=== PATIENT | female | born 1980 | race Caucasian/White ===

== ENCOUNTER 2021-05-24 12:33 | Emergency (ER) | payer SELFPAY ==
[~2021-05-24] VITALS: Ht 160 cm; Wt 57.4 kg
[2021-05-24 14:18] LABS: HEMATOCRIT 44.7 % (37.0-47.0); HEMOGLOBIN 15.1 g/dL (12.5-16.0); MEAN PLATELET VOLUME 10.4 fl (7.4-10.4); RED BLOOD COUNT 5.13 M/mm3 (4.10-5.30); RED CELL DISTRIBUTION WIDTH 12.5 % (11.5-14.5); WHITE BLOOD COUNT 4.8 K/mm3 (4.8-10.8)
[2021-05-24 14:24] LABS: ALBUMIN 4.1 g/dL (3.5-5.0); POTASSIUM 4.1 mmol/L (3.5-5.1)
[2021-05-24 14:25] LABS: CALCIUM 9.2 mg/dL (8.3-10.5)
[2021-05-24 14:27] LABS: TOTAL PROTEIN 7.8 g/dL (6.4-8.3)
[2021-05-24 14:28] LABS: TOTAL BILIRUBIN 0.3 mg/dL (0.2-1.2)
[2021-05-24] MEDS ORDERED: LORAZEPAM1 M1 PO (14:30)
[2021-05-24 15:25] VITALS: BP 124/69
== END 2021-05-24 15:22 | disposition home or self-care (01) ==
LOC: ED 12:33
PROVIDERS: Family Medicine
DX: F10.10 Alcohol abuse, uncomplicated (principal); F41.9 Anxiety disorder, unspecified; F17.210 Nicotine dependence, cigarettes, uncomplicated

== ENCOUNTER 2021-05-31 18:59 | Emergency (ER) | payer SELFPAY ==
[~2021-05-31 18:59] MED LIST: LORAZEPAM1 M1 PO
[2021-05-31 21:02] VITALS: BP 142/78
== END 2021-05-31 21:07 | disposition home or self-care (01) ==
LOC: ED 18:59
DX: F10.10 Alcohol abuse, uncomplicated (principal); F41.9 Anxiety disorder, unspecified

== ENCOUNTER 2021-06-19 16:38 | Emergency (ER) | payer SELFPAY ==
[~2021-06-19] VITALS: Ht 157.5 cm; Wt 57.4 kg
[2021-06-19 18:30] VITALS: BP 142/92
== END 2021-06-19 18:30 | disposition left against medical advice (07) ==
LOC: ED 16:38
DX: F10.10 Alcohol abuse, uncomplicated (principal); F41.9 Anxiety disorder, unspecified

== ENCOUNTER 2021-06-20 20:34 | Emergency (ER) | payer SELFPAY ==
[~2021-06-20] VITALS: Ht 172.7 cm; Wt 57.4 kg
[2021-06-20 21:46] LABS: BASO # 0.02 K/mm3 (0.02-0.10); EOS % 1.3 % (1.0-5.0); HEMATOCRIT 39.6 % (37.0-47.0); LYMPH# 1.44 K/mm3 (1.50-4.00); MEAN CELL VOLUME 88 fl (78-100); MEAN CORPUSCULAR HEMOGLOBIN 31 pg (27-31); MEAN CORPUSCULAR HGB CONC 35 g/dL (33-37); MEAN PLATELET VOLUME 10.3 fl (7.4-10.4); MONO # 0.52 K/mm3 (0.20-0.80); NEU # 5.77 K/mm3 (1.40-6.50); PLATELET COUNT 146 K/mm3 (130-400); RED BLOOD COUNT 4.49 M/mm3 (4.10-5.30); RED CELL DISTRIBUTION WIDTH 14.1 % (11.5-14.5); WHITE BLOOD COUNT 7.9 K/mm3 (4.8-10.8)
[2021-06-20 21:56] LABS: ALBUMIN 4.2 g/dL (3.5-5.0); POTASSIUM 3.7 mmol/L (3.5-5.1); SODIUM 142 mmol/L (136-145)
[2021-06-20 21:57] LABS: CALCIUM 9.6 mg/dL (8.3-10.5)
[2021-06-20 21:58] LABS: GLUCOSE 99 mg/dL (65-105)
[2021-06-20 21:59] LABS: CARBON DIOXIDE 26 mmol/L (22-29); TOTAL PROTEIN 7.6 g/dL (6.4-8.3)
[2021-06-20 22:04] LABS: AST-SGOT 37 U/L (5-34)
[2021-06-20 22:05] LABS: ALT/SGPT 29 U/L (0-55)
[2021-06-20 22:08] LABS: ACETAMINOPHEN < 1 ug/mL; ALCOHOL IN-HOUSE < 10 mg/dL (<10)
[2021-06-21] MEDS ORDERED: CLONIDINE HYDR0.1 MG PO (13:32)
[2021-06-21] MEDS ORDERED: ATIVAN 2MG2 MG PO (13:32)
[2021-06-21 13:43] VITALS: BP 130/80
== END 2021-06-21 13:44 | disposition home or self-care (01) ==
LOC: ED 20:34
PROVIDERS: Family Medicine
DX: F10.139 Alcohol abuse with withdrawal, unspecified (principal); F10.129 Alcohol abuse with intoxication, unspecified; F41.9 Anxiety disorder, unspecified; F20.9 Schizophrenia, unspecified; R45.851 Suicidal ideations
CPT/HCPCS: J2060; J3475; J7030